=== PATIENT | female | born 1980 | race Caucasian/White ===

== ENCOUNTER 2018-12-04 16:50 | Emergency (ER) | payer OTHER ==
[2018-12-04] MEDS ORDERED: LIDOCAINE 1% 10 ML VIAL INJ ONE (17:37)
[2018-12-04] MEDS ORDERED: CHLORHEXIDINE GLUCONATE 4 % 15 ML UD TOP ONE (17:37)
--- NOTE | 2018-12-04 17:54 | ED.PDOC ---
History of Present Illness - General Chief Complaint: Skin/Abrasion/Tear Stated Complaint: Abscess to perineal area Time Seen by Provider: 12/04/18 17:27 Source: patient Exam Limitations: no limitations - History of Present Illness Initial Comments: Maria Luisa Brown 38 y/o female stated that she had Bartholins cyst drained out on her vagina last week and feels like coming back stating lots of discomfort in the area.Has history of DM 2. Timing/Duration: 1 week Severity: moderate Improving Factors: nothing Worsening Factors: nothing Associated Symptoms: denies symptoms, other - see hpi Allergies/Adverse Reactions: Allergies Shellfish Allergy Allergy (Verified 01/21/16 16:26) Home Medications: Ambulatory Orders Acetamin W/Cod #3 Tab [Tylenol w/CODEINE #3] 1 ea PO Q6HRS PRN #10 tab 12/04/18 Clindamycin HCl 150 mg PO TID 10 Days #30 cap 12/04/18 Dulaglutide [Trulicity] 7.5 mg SUBCU WKLY 12/04/18 Metformin HCl 1,000 mg PO DAILY 12/04/18 Review of Systems - Review of Systems Constitutional: States: no symptoms reported EENTM: States: no symptoms reported Respiratory: States: no symptoms reported Cardiology: States: no symptoms reported Gastrointestinal/Abdominal: States: no symptoms reported Genitourinary: States: see HPI Musculoskeletal: States: no symptoms reported Skin: States: no symptoms reported Past Medical History (General) - Patient Medical History Hx Seizures: No Hx Stroke: No Hx Congestive Heart Failure: No Hx Thyroid Disease: No Hx Diabetes: Yes - dad Hx MRSA: No Surgical History: no surgical history - Vaccination History Hx Tetanus, Diphtheria Vaccination: Yes Hx Influenza Vaccination: Yes - 2018 Hx Pneumococcal Vaccination: Yes - Social History Hx Tobacco Use: No Hx Alcohol Use: Yes - Social Hx Physical Abuse: No Hx Emotional Abuse: No - Female History Patient is a Female of Child Bearing Age (10 -59 yrs old): Yes Hx Last Menstrual Period: 11/20/18 Patient : No Family Medical History - Family History Mother Family History: No Known Physical Exam - Physical Exam General Appearance: Alert, Comfortable, No apparent distress Eye Exam: bilateral normal Ears, Nose, Throat: hearing grossly normal Neck: non-tender, normal inspection Respiratory: chest non-tender, lungs clear Cardiovascular/Chest: normal peripheral pulses, regular rate, rhythm, no murmur Peripheral Pulses: radial,right: 2+, radial,left: 2+ Gastrointestinal/Abdominal: non tender, soft, no organomegaly, other - Vaginal Exam-tender erythematous swelling,draining left labia Extremity: no pedal edema, no calf tenderness Neurologic: alert, oriented x 3 Skin Exam: normal color, warm/dry Progress - Progress Progress: 12/04/18 17:56 Vital Signs - 8 hr 12/04/18 17:01 Temperature 99.7 F H Pulse Rate [ 89 Right Radial] Respiratory 18 Rate Blood Pressure 123/87 [Left Arm] O2 Sat by Pulse 96 Oximetry Procedures - Incision and Drainage #1 Site: labia-bartholins gland abscess;hibiclens prep Procedure and Prep: sterile drapes applied, gauze wick placed, irrigated, pus drained - 8cc, other Departure - Departure Clinical Impression: Bartholin's gland abscess Time of Disposition: 19:03 Disposition: Discharge to Home or Self Care Condition: Fair Departure Forms: ED Discharge - Pt. Copy, Patient Portal Self Enrollment Instructions: Bartholin's Gland Cyst, Abscess Incision and Drainage (DC) Referrals: VANESSA LAND [Primary Care Provider] - 1-2 Weeks Prescriptions: Acetamin W/Cod #3 Tab [Tylenol w/CODEINE #3] 1 ea PO Q6HRS PRN #10 tab PRN Reason: Pain Clindamycin HCl 150 mg PO TID 10 Days #30 cap Home Medications: Ambulatory Orders Acetamin W/Cod #3 Tab [Tylenol w/CODEINE #3] 1 ea PO Q6HRS PRN #10 tab 12/04/18 Clindamycin HCl 150 mg PO TID 10 Days #30 cap 12/04/18 Dulaglutide [Trulicity] 7.5 mg SUBCU WKLY 12/04/18 Metformin HCl 1,000 mg PO DAILY 12/04/18 Additional Instructions: Call up Clinics [facility] [phone] for appointment
[2018-12-04] MEDS ORDERED: LIDOCAINE 2 % GEL 5 ML TUBE TOP ONE (18:05)
[2018-12-04] MEDS ORDERED: IODOFORM 1/4 INCH 1 EA BTTL TOP ONE (18:38)
[2018-12-04] MEDS ORDERED: CLINDAMYCIN HCL CAP 150 MG CAP PO ONE (19:06)
[2018-12-04] MEDS ORDERED: CLINDAMYCIN PHOSPHATE 150 MG/ML VIAL IM ONE (19:06)
[2018-12-04] MEDS ORDERED: HYDROcodone 10MG/APAP 325MG 1 EA TAB PO ONE (19:07)
[2018-12-04] MEDS ORDERED: HYDROCOD/APAP 10/325 (ER DISP) # 3 tablets PO ONE (19:07)
[2018-12-04 19:29] VITALS: BP 119/76; TEMP 98.4; O2SAT 95
== END 2018-12-04 19:29 | disposition home or self-care (01) ==
LOC: ER 16:50
DX: N75.1 Abscess of Bartholin's gland (principal); E11.9 Type 2 diabetes mellitus without complications; Z91.013 Allergy to seafood

== ENCOUNTER 2019-06-17 14:17 | Emergency (ER) | payer OTHER ==
[2019-06-17 14:38] VITALS: TEMP 98.1
--- NOTE | 2019-06-17 15:05 | ED.PDOC ---
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 TWO DAYS AGO SHE STARTED WITH AN INDURATION TO THE RIGHT LABIA MAJORA. DENIES ANY FEVER BUT VOICES THAT IT IS PAINFUL. Timing/Duration: other - TWO DAYS Improving Factors: nothing Worsening Factors: nothing Allergies/Adverse Reactions: Allergies Shellfish Allergy Allergy (Verified 01/21/16 16:26) Home Medications: Ambulatory Orders Dulaglutide [Trulicity] 7.5 mg SUBCU WKLY 12/04/18 Metformin HCl [Metformin Hydrochloride] 1,000 mg PO DAILY 12/04/18 Sulfamethoxazole-Trimethoprim [Bactrim Ds 800-160 mg] 1 tab PO BID #20 tab 06/17/19 Tramadol HCl 50 mg PO Q6HRS #16 tab 06/17/19 Review of Systems - Review of Systems Constitutional: States: no symptoms reported EENTM: States: no symptoms reported Respiratory: States: no symptoms reported Cardiology: States: no symptoms reported Gastrointestinal/Abdominal: States: no symptoms reported Genitourinary: States: other - INDURATED LESION TO THE RIGHT LABIA MAJORA Musculoskeletal: States: no symptoms reported Skin: States: no symptoms reported Neurological: States: no symptoms reported Past Medical History (General) - Patient Medical History Hx Seizures: No Hx Stroke: No Hx Congestive Heart Failure: No Hx Thyroid Disease: No Hx Diabetes: Yes Hx MRSA: No - Vaccination History Hx Tetanus, Diphtheria Vaccination: Yes Hx Influenza Vaccination: Yes - 2018 Hx Pneumococcal Vaccination: Yes - Social History Hx Tobacco Use: No Hx Alcohol Use: Yes - Social Hx Physical Abuse: No Hx Emotional Abuse: No - Female History Patient is a Female of Child Bearing Age (10 -59 yrs old): Yes Hx Last Menstrual Period: 11/20/18 Patient : No Family Medical History - Family History Mother Family History: No Known Physical Exam - Physical Exam General Appearance: Alert, Anxious Ears, Nose, Throat: normal ENT inspection Neck: full range of motion Respiratory: chest non-tender Cardiovascular/Chest: regular rate, rhythm Gastrointestinal/Abdominal: soft, no organomegaly Rectal Exam: deferred Comments: THE VULVA IS EXAMINED AND THERE IS A ONE CM INDURATED LESION TO THE RIGHT LABIA MAJORA, NON FLUCTUANT, NO ERYTHEMA. FEELS MORE LIKE A SEBACEOUS CYST. RECOMMEND THAT SHE BE TREATED WITH SITZ BATHS WARM WATER, ANTIBIOTICS, ANALGESIA. IF IT BECOMES FLUCTUANT WE WILL D & C . Departure - Departure Clinical Impression: Cyst of vulva Time of Disposition: 15:11 Disposition: Discharge to Home or Self Care Condition: Good Departure Forms: ED Discharge - Pt. Copy, Patient Portal Self Enrollment Instructions: Epidermal Cyst Referrals: VANESSA LAND [Primary Care Provider] - 1-2 Weeks Prescriptions: Tramadol HCl 50 mg PO Q6HRS #16 tab Sulfamethoxazole-Trimethoprim [Bactrim Ds 800-160 mg] 1 tab PO BID #20 tab Home Medications: Ambulatory Orders Dulaglutide [Trulicity] 7.5 mg SUBCU WKLY 12/04/18 Metformin HCl [Metformin Hydrochloride] 1,000 mg PO DAILY 12/04/18 Sulfamethoxazole-Trimethoprim [Bactrim Ds 800-160 mg] 1 tab PO BID #20 tab 06/17/19 Tramadol HCl 50 mg PO Q6HRS #16 tab 06/17/19
[2019-06-17 15:46] VITALS: BP 159/77; O2SAT 94
== END 2019-06-17 16:01 | disposition home or self-care (01) ==
LOC: ER 14:17
DX: N90.7 Vulvar cyst (principal); E11.9 Type 2 diabetes mellitus without complications; Z79.84 Long term (current) use of oral hypoglycemic drugs; Z79.899 Other long term (current) drug therapy; Z91.013 Allergy to seafood